=== PATIENT | female | born 1995 | race Hispanic/Latino ===

== ENCOUNTER 2020-03-03 14:51 | Emergency (ER) | payer OTHER, SELFPAY ==
[2020-03-03] MEDS ORDERED: Ondansetron PF 4 MG/2 ML Vial ONE ×2 (15:25→16:42)
[2020-03-03] MEDS ORDERED: Morphine 4 MG/ML VIAL ONE (15:25)
[2020-03-03] MEDS ORDERED: Acetaminophen 500 MG TAB ONE (15:35)
[2020-03-03 16:16] LABS: #Basophils 0.2 thou/uL (0.0-0.2); #Lymphocytes 1.5 thou/uL (1.20-3.40); #Neutrophils 6.3 thou/uL (1.40-6.50); %Basophils 2.2 % (0.0-1.0); %Eosinophils 0.2 % (0.0-10.0); %Monocytes 10.8 % (0.0-10.0); %Neutrophils 69.8 % (42.0-75.0); Hemoglobin 12.3 g/dL (12.0-16.0); Mean Corpuscular HGB CONC 31.3 g/dL (32.0-36.0); Mean Corpuscular Hemoglobin 28.7 pg (27.0-31.0); Mean Corpuscular Volume 91.5 fL (78.0-98.0); Mean Platelet Volume 9.3 fL (7.4-10.4); Platelet Count 199 thou/uL (130-400); RBC Distribution Width 11.7 % (11.5-14.5); White Blood Cell (WBC) Count 9.1 thou/uL (4.8-10.8)
[2020-03-03 16:18] LABS: ALT (SGPT) 20 U/L (8-55); AST (SGOT) 11 U/L (5-34); Albumin 4.6 g/dL (3.5-5.0); Alkaline Phosphatase 75 U/L (40-110); Anion Gap 15 mmol/L (10-20); BUN (Urea Nitrogen) 6 mg/dL (7.0-18.7); Bilirubin, Total 0.3 mg/dL (0.2-1.2); Calc. Creatinine Clearance 0 mL/min (70-130); Calcium 9.4 mg/dL (7.8-10.44); Carbon Dioxide 23 mmol/L (22-29); Chloride 102 mmol/L (98-107); Estimated GFR-MDRD Greater than 90; Globulin 3.7 g/dL (2.4-3.5); Glucose 93 mg/dL (70-105); Lipase 20 U/L (8-78); Potassium 3.4 mmol/L (3.5-5.1); Protein, Total 8.3 g/dL (6.0-8.3); Sodium 137 mmol/L (136-145)
[2020-03-03] MEDS ORDERED: Mag-Al Plus 1200 MG/1200 MG/120 MG/30 ML UDCUP ONE (16:42)
[2020-03-03] MEDS ORDERED: Lidocaine Viscous Sol 2% 15 ml UD Cup ONE (16:42)
[2020-03-03 16:54] LABS: Bilirubin Negative (Negative); Blood, Urine Moderate (Negative); Clarity Clear (Clear); Glucose, Urine (Dipstick) Negative (Negative); Ketone, Urine 40 mg/dL (Negative); Leukocyte Negative (Negative); Nitrite Negative (Negative); Protein, Urine (Dipstick) Negative (Neg-Trace); Urobilinogen 0.2 mg/dL (Less than 2); pH, Urine 5.5 (5.0-9.0)
[2020-03-03 16:56] LABS: Bacteria/HPF 2+ HPF (None Seen); RBC/HPF 0-3 HPF (0-3); Squamous Epithelial 0-3 HPF (0-3); WBC/HPF 0-3 HPF (0-3)
[2020-03-03 16:59] LABS: Pregnancy Test - Urine (BHCG) Negative (Negative); Pregu Control Background? CLEAR/WHITE (CLR/WHITE); Pregu Control Bar Appear? YES (CONTROL BAR)
--- NOTE | 2020-03-03 17:19 | CT ---
CT ABDOMEN AND PELVIS WITHOUT CONTRAST: Date: 03-03-[address] of the abdomen and pelvis was done without oral or IV contrast using a renal stone protocol . FINDINGS: The lung bases are clear. The liver, spleen, pancreas, adrenal glands, kidneys, and abdominal aorta showed no acute findings wi thin the limitations of a noncontrast study. There has been a prior cholecystectomy. On one slice the re is the suggestion of a possible 1 mm calculus in the right kidney. There is no sign of hydronephro sis, ureteral dilation or calcification. The bowel is unremarkable with no distention to suggest obstruction and no wall thickening. The appen angelo was identified and appears normal. A few fluid filled loops of small bowel are present but they a re not dilated. CT of the pelvis showed no pelvic masses, fluid collections, or inflammatory changes. IMPRESSION: 1. No acute abdominal or pelvic findings. 2. Possible 1 mm nonobstructing calculus in the right kidney. Findings discussed with Dr. Grossman at 1624 on 03-03-2020. POS: HOME
--- NOTE | 2020-03-03 19:57 | RAD ---
PORTABLE CHEST: Date: 03-03-2020 FINDINGS: An AP portable film at 1727 shows a normal sized heart and clear lungs. No infiltrate or effusion was seen. There is no vascular congestion or edema. The mediastinum appears normal. IMPRESSION: No acute thoracic findings. POS: HOME
== END 2020-03-03 19:40 | disposition home or self-care (01) ==
LOC: BURERS 14:51
DX: R11.2 Nausea with vomiting, unspecified (principal); Z20.828 Contact with and (suspected) exposure to other viral communicable diseases
CPT/HCPCS: 71045; 74176; 80053; 81003; 81015; 81025; 83605; 83690; 85025; 87086; 87804; 96374; 96375; 96376; J0500; J2270; J2405